=== PATIENT | female | born 1945 | race Caucasian/White ===

== ENCOUNTER 2018-06-02 06:58 | Emergency (ER) | payer MEDICARE, OTHER ==
[~2018-06-02] VITALS: Ht 160 cm; Wt 180.0 kg
--- NOTE | 2018-06-02 07:01 | NUR ---
BIB EMS WITH C/O SOB, N/V/D X LAST FEW DAYS, THINKING SHE HAS HYPOGLYCEMIA. BG 182. NEB IN PROGRESS ON ARRIVAL. 97% ON ROOM AIR. WHEEZES BILAT. HX ANXIETY, HTN. BP 170/100. GENERAL WEAKNESS. SPEAKING IN SENTENCES, A/O X 4. PLACED ON GURNEY.
[2018-06-02] MEDS ORDERED: proCHLORperazine 10 MG/2 ml inj IV ONE (07:40)
[2018-06-02] MEDS ORDERED: normal saline 1000ML IV soln IVB ONE (07:40)
[2018-06-02] MEDS ORDERED: LORazepam 2 mg/ml vial IV ONE (07:40)
--- NOTE | 2018-06-02 08:10 | NUR ---
PT SENT TO RESTROOM WITH UA CUP. STATED IT FELL ON GROUND AND UNABLE TO PEE RIGHT NOW. EDUCATED ABOUT IMPORTANCE. STATED WILL TRY AGAIN SOON.
[2018-06-02 08:14] LABS: BASOPHILS # (AUTO) 0.1 X10'3 (0-0.2); EOSINOPHILS # (AUTO) 0.3 X10'3 (0-0.9); HEMATOCRIT 46.4 % (35.0-45.0); HEMOGLOBIN 15.8 g/dl (12.0-16.0); LYMPHOCYTES # (AUTO) 2.9 X10'3 (1.1-4.8); LYMPHOCYTES % (AUTO) 33.7 % (21-51); MEAN CORPUSCULAR HEMOGLOBIN 29.7 PG (27.0-31.0); MEAN CORPUSCULAR HGB CONC 34.1 g/dL (33.0-36.5); MEAN CORPUSCULAR VOLUME 87.2 FL (78-98); MEAN PLATELET VOLUME 9.2 FL (7.4-10.4); MONOCYTES # (AUTO) 0.5 X10'3 (0-0.9); MONOCYTES % (AUTO) 5.9 % (2-12); NEUTROPHILS # (AUTO) 4.8 X10'3 (1.8-7.7); NEUTROPHILS % (AUTO) 56.4 % (42-75); PLATELET COUNT 268 X10'3 (140-440); RED BLOOD COUNT 5.32 X10'6 (4.20-5.60); RED CELL DISTRIBUTION WIDTH 13.4 % (11.5-14.5); WHITE BLOOD COUNT 8.5 X10'3 (4.5-11.0)
[2018-06-02 08:33] LABS: ALANINE AMINOTRANSFERASE 25 U/L (12-78); ALBUMIN 3.4 G/DL (3.4-5.0); ALKALINE PHOSPHATASE 94 IU/L (46-116); ANION GAP 11 (8-16); ASPARTATE AMINO TRANSFERASE 15 U/L (10-37); BILIRUBIN,TOTAL 0.3 MG/DL (0.1-1.0); BLOOD UREA NITROGEN 25 MG/DL (7-18); BUN/CREATININE RATIO 21.7 (6.6-38.0); CALCIUM 9.3 MG/DL (8.5-10.1); CHLORIDE 106 MMOL/L (99-107); CREATININE 1.15 MG/DL (0.40-0.90); GLUCOSE 178 MG/DL (70-104); POTASSIUM 3.6 MMOL/L (3.5-5.1); SODIUM 141 MMOL/L (135-145); TOTAL CARBON DIOXIDE 24.2 MMOL/L (24-32); TOTAL PROTEIN 6.9 G/DL (6.4-8.2); eGFR 46 ML/MIN
[2018-06-02 08:36] LABS: MAGNESIUM 1.5 MG/DL (1.5-2.4)
--- NOTE | 2018-06-02 08:40 | NUR ---
PT WENT TO RESTOOM AGAIN, UNABLE TO GIVE UA SAMPLE. WILL NOTIFY .
--- NOTE | 2018-06-02 09:22 | NUR ---
STRAIGHT CATH FOR URINE SPEC AND SENT TO LAB.
[2018-06-02 09:32] LABS: CLARITY,URINE CLEAR (Clear); COLOR,URINE YELLOW (Yellow); GLUCOSE, URINE NEGATIVE (Neg); KETONES,URINE NEGATIVE (Neg); LEUKOCYTE ESTERASE ,URINE NEGATIVE (Neg); NITRITES, URINE NEGATIVE (Neg); OCCULT BLOOD,URINE NEGATIVE (Neg); PH,URINE 5.5 (4.8-8.0); PROTEIN,URINE NEGATIVE (Neg); UROBILINOGEN,URINE 0.2 E.U/dL (0.2-1.0)
--- NOTE | 2018-06-02 09:38 | NUR ---
RESTING ON GURNEY WITH FRIEND AT THE BEDSIDE. RESP UNLABORED. NO DISTRESS NOTED.
[2018-06-02 09:40] LABS: UA COLLECTION TYPE STRAIGHT CATH
[2018-06-02 10:34] VITALS: BP 111/54
== END 2018-06-02 10:36 | disposition home or self-care (01) ==
LOC: ER 06:58
DX: R42 Dizziness and giddiness (principal); F41.9 Anxiety disorder, unspecified; R10.13 Epigastric pain; K21.9 Gastro-esophageal reflux disease without esophagitis; I10 Essential (primary) hypertension; Z90.710 Acquired absence of both cervix and uterus; Z90.89 Acquired absence of other organs
CPT/HCPCS: 36415; 71045; 80053; 81003; 83735; 84443; 84484; 85025; 93005; 96361; 96374; 96375; 99284; J0780; J2060; J7030; P9612